=== PATIENT | male | born 1980 | race Caucasian/White ===

== ENCOUNTER 2016-12-31 15:53 | Inpatient (IN) ==
--- NOTE | 2016-12-31 16:28 | EKG Report ---
Test Performed on : 12/31/2016 4:20:18 PM Test Reason : ams Blood Pressure : / mmHG Vent. Rate : 060 BPM Atrial Rate : 060 BPM P-R Int : 172 ms QRS Dur : 094 ms QT Int : 410 ms P-R-T Axes : 043 073 026 degrees QTc Int : 410 ms Normal sinus rhythm. Normal ECG No previous ECGs available Unconfirmed Result
[2016-12-31 16:51] LABS: MANUAL DIFF NEEDED? NO
[2016-12-31 16:54] LABS: BASO% 0.2 % (0.0-0.8); EOS# 0.03 X1000 (0.0-0.7); EOS% 0.3 % (0.0-10.0); HEMATOCRIT 43.4 % (42.0-52.0); HEMOGLOBIN 15.3 g/dL (14.0-18.0); IMM GRAN# 0.02 X1000 (0.0-0.04); IMM GRAN% 0.2 % (0.0-0.5); LYMPH# 1.29 X1000 (1.2-3.4); LYMPH% 13.4 % (20.5-51.1); MCH 30.5 PG (27-31); MCHC 35.3 g/dL (33-37); MCV 86.5 FL (81-99); MONO# 0.45 X1000 (0.11-0.59); MONO% 4.7 % (1.7-9.3); MPV 11.5 FL (7.4-10.4); NEUT% 81.2 % (42.2-75.2); PLT 290 X1000 (130-400); RBC 5.02 XMIL (4.7-6.1)
--- NOTE | 2016-12-31 17:19 | Diag Imaging Result Doc PS360 ---
EXAM: CT HEAD W/O CONTRAST HISTORY: ams TECHNIQUE: CT brain without contrast. Dose reduction technique. COMPARISON: None. FINDINGS: No parenchymal hemorrhage. No epidural or subdural hematoma. No subarachnoid hemorrhage. No mass identified on this noncontrasted exam. No hydrocephalus. No sinus opacification. IMPRESSION: No hemorrhage. Negative brain CT without contrast. Electronically signed by Narciso Clemons 12/31/2016 5:17 PM
[2016-12-31 17:24] LABS: AGAP 11; ALBUMIN 4.3 g/dL (3.5-5.0); ALKALINE PHOSPHATASE 92 U/L (32-122); BUN 7 mg/dL (8-22); CALCIUM 9.5 mg/dL (8.8-10.2); CHLORIDE 105 mmol/L (98-107); COSMO 281; GOT 15 U/L (10-34); GPT 21 U/L (10-44); POTASSIUM 3.7 mmol/L (3.5-5.1); SODIUM 142 mmol/L (136-145); TCO2 26 mmol/L (25-35)
--- NOTE | 2016-12-31 17:25 | Diag Imaging Result Doc PS360 ---
EXAM: CHEST-1 VIEW HISTORY: ams TECHNIQUE: AP chest COMPARISON: None FINDINGS: The lungs are well expanded. The heart is not enlarged. The vessels are not distended. There are no infiltrates. No effusion identified. IMPRESSION: Negative exam. Electronically signed by Narciso Clemons 12/31/2016 5:23 PM
[2016-12-31 17:31] LABS: URINE CULTURE PL NEEDED? NO
[2016-12-31 17:36] LABS: ACETAMINOPHEN < 1.2 ug/mL (10-30)
[2016-12-31 17:40] LABS: UR AMPHETAMINES QUAL NONE DETECTED (NONE DETECT); UR BARBITUATES QUAL NONE DETECTED (NONE DETECT); UR BENZODIAZEPIN QUAL NONE DETECTED (NONE DETECT); UR COCAINE QUAL NONE DETECTED (NONE DETECT); UR MDMA QUAL NONE DETECTED (NONE DETECT); UR METHADONE QUAL NONE DETECTED (NONE DETECT); UR METHAMPHETAMINE QUAL NONE DETECTED (NONE DETECT); UR OPIATES QUAL NONE DETECTED (NONE DETECT); UR OXYCODONE QUAL PRESUMPTIVE POSITIVE (NONE DETECT); UR PCP QUAL NONE DETECTED (NONE DETECT); UR TCA QUAL NONE DETECTED (NONE DETECT)
[2016-12-31 17:41] LABS: UR CANNABINOIDS QUAL NONE DETECTED (NONE DETECT)
[2016-12-31 17:57] LABS: BILIRUBIN URINE NEGATIVE (NEGATIVE); BLOOD URINE NEGATIVE (NEGATIVE); CLARITY CLEAR (CLEAR); COLOR YELLOW; GLUCOSE URINE NEGATIVE (NEGATIVE); LEUKOCYTES URINE NEGATIVE (NEGATIVE); NITRITE URINE NEGATIVE (NEGATIVE); PROTEIN URINE NEGATIVE (NEGATIVE); SP GRAVITY URINE 1.005; URINE EPITHELIAL CELLS <10 /HPF (<10); URINE RBC <10 /HPF (<10); URINE SOURCE CLEAN CATCH; URINE WBC <10 /HPF (<10); UROBILINOGEN URINE NORMAL
[2016-12-31] MEDS ORDERED: LABETALOL IV ONE (18:14)
[2016-12-31] MEDS: APRESOLINE IV PRN (19:35)
[2016-12-31] MEDS ORDERED: HALDOL IV ONE (21:07)
[2016-12-31] MEDS ORDERED: ATIVAN ONE (21:11)
[2016-12-31] MEDS ORDERED: NS 1,000 ML ONE (21:12)
[2016-12-31] MEDS: NS 1,000 ML IV SCH (21:15)
[2016-12-31] MEDS: ATIVAN IV PRN (21:15)
[2016-12-31] MEDS: ZOFRAN IV PRN (21:30)
[2017-01-01] MEDS: ATIVAN IV PRN (01:00)
[2017-01-01] MEDS: APRESOLINE IV PRN ×2 (04:17→08:13)
[2017-01-01 06:25] LABS: MANUAL DIFF NEEDED? NO
[2017-01-01 06:32] LABS: BASO% 0.2 % (0.0-0.8); EOS# 0.02 X1000 (0.0-0.7); EOS% 0.2 % (0.0-10.0); HEMATOCRIT 40.2 % (42.0-52.0); IMM GRAN# 0.02 X1000 (0.0-0.04); IMM GRAN% 0.2 % (0.0-0.5); LYMPH# 1.35 X1000 (1.2-3.4); LYMPH% 14.7 % (20.5-51.1); MCH 30.5 PG (27-31); MCHC 34.8 g/dL (33-37); MCV 87.6 FL (81-99); MONO# 0.51 X1000 (0.11-0.59); MONO% 5.5 % (1.7-9.3); MPV 11.6 FL (7.4-10.4); NEUT% 79.2 % (42.2-75.2); PLT 260 X1000 (130-400); RBC 4.59 XMIL (4.7-6.1)
[2017-01-01 07:00] LABS: AGAP 10; ALBUMIN 4.2 g/dL (3.5-5.0); BUN 8 mg/dL (8-22); CALCIUM 9.3 mg/dL (8.8-10.2); CHLORIDE 105 mmol/L (98-107); COSMO 282; MAGNESIUM 1.6 mg/dL (1.5-2.7); POTASSIUM 3.5 mmol/L (3.5-5.1); SODIUM 142 mmol/L (136-145); TCO2 26 mmol/L (25-35)
[2017-01-01] MEDS: ZOFRAN IV PRN (08:37)
[2017-01-01] MEDS ORDERED: NAPROSYN PO PRN (10:17)
[2017-01-01] MEDS: CARDENE 20 MG/NS 20 MG/200 ML PIGGYBACK IV SCH ×4 (11:03→20:34)
[2017-01-01] MEDS: NS 1,000 ML IV SCH ×2 (11:13→23:30)
[2017-01-01] MEDS: CATAPRES PO SCH (11:14)
[2017-01-01] MEDS: FERROUS SULFATE PO SCH (11:14)
[2017-01-01] MEDS: COREG PO SCH ×2 (11:14→20:29)
[2017-01-01] MEDS: PRINIVIL PO SCH (11:14)
[2017-01-01] MEDS: LYRICA PO SCH ×2 (11:15→20:28)
[2017-01-01] MEDS: FLOMAX PO SCH (11:15)
[2017-01-01] MEDS ORDERED: LEXAPRO PO SCH (21:00)
[2017-01-02 06:10] LABS: MANUAL DIFF NEEDED? NO
[2017-01-02 06:16] LABS: BASO% 0.3 % (0.0-0.8); EOS# 0.06 X1000 (0.0-0.7); EOS% 0.8 % (0.0-10.0); HEMATOCRIT 37.4 % (42.0-52.0); HEMOGLOBIN 12.8 g/dL (14.0-18.0); IMM GRAN# 0.01 X1000 (0.0-0.04); IMM GRAN% 0.1 % (0.0-0.5); LYMPH# 1.94 X1000 (1.2-3.4); LYMPH% 25.9 % (20.5-51.1); MCH 30.3 PG (27-31); MCHC 34.2 g/dL (33-37); MCV 88.6 FL (81-99); MPV 11.9 FL (7.4-10.4); NEUT% 64.9 % (42.2-75.2); PLT 226 X1000 (130-400); RBC 4.22 XMIL (4.7-6.1)
[2017-01-02 06:44] LABS: AGAP 9; BUN 8 mg/dL (8-22); CALCIUM 8.5 mg/dL (8.8-10.2); CHLORIDE 106 mmol/L (98-107); COSMO 279; POTASSIUM 3.5 mmol/L (3.5-5.1); SODIUM 141 mmol/L (136-145); TCO2 26 mmol/L (25-35)
[2017-01-02] MEDS: CARDENE 20 MG/NS 20 MG/200 ML PIGGYBACK IV SCH (07:57)
[2017-01-02] MEDS: FLOMAX PO SCH (08:34)
[2017-01-02] MEDS: COREG PO SCH (08:34)
[2017-01-02] MEDS: LYRICA PO SCH (08:34)
[2017-01-02] MEDS: FERROUS SULFATE PO SCH (08:34)
[2017-01-02] MEDS: PRINIVIL PO SCH (08:34)
[2017-01-02] MEDS: CATAPRES PO SCH (08:35)
[2017-01-02] MEDS ORDERED: HYDROCHLOROTHIAZIDE PO SCH (09:45)
[2017-01-02 13:29] VITALS: BP 131/71
== END 2017-01-02 13:00 | disposition home or self-care (01) ==
LOC: P.ED 15:53 → P.ICU 19:54 → SUATTDRO 19:54
PROVIDERS: ADMIT Internal Medicine; ATTEND Family Medicine